=== PATIENT | female | born 1985 | race Caucasian/White ===

== ENCOUNTER 2018-10-12 15:46 | Emergency (ER) | payer MEDICAID | END 2018-10-12 16:25 | disposition home or self-care (01) | LOC: E/R 16:25 | DX: S03.00XA Dislocation of jaw, unspecified side, initial encounter (principal); X58.XXXA Exposure to other specified factors, initial encounter; Y92.9 Unspecified place or not applicable | CPT/HCPCS: 21480; 99283-25 ==